=== PATIENT | female | born 1950 | race Caucasian/White ===

== ENCOUNTER → 2019-06-03 09:02 | Day surgery (SDC) | payer MEDICARE ==
[~2019-06-03 09:02] MED LIST: Buffered Lidocaine 1% SYRIN* 1 ML/SYRINGE INTRADERM ONE; Dexamethasone TAB* 4 MG ONE; Dexamethasone TAB* 4 MG PO ONE; Famotidine TAB* 20 MG ONE; Famotidine TAB* 20 MG PO ONE; Lactated Ringers 1000 ML Bag* 1,000 ML IV SCH; Lidocaine 1% w EPI 1:100,000* 30 ML VIAL ONE; Midazolam* 1 MG/ML 2 ML VIAL (2 MG) ONE; Ondansetron INJ* 2 MG/ML VIAL ONE; Scopolamine 1.5 mg* PATCH ONE; Scopolamine 1.5 mg* PATCH TRANSDERM ONE; ceFAZolin 2 GM in NS PREMIX(*) 2 GM/100 ML BAG IVPB ONE; fentaNYL* 50 MCG/ML 2 ML VIAL (100 MCG VIAL) ONE
[2019-06-03 13:36] VITALS: BP 139/73
--- NOTE | 2019-06-03 14:09 | OP ---
DATE OF OPERATION: 06/03/19 - [facility] DATE OF : 48 SURGEON: Raulito Estrada MD PRE-OP DIAGNOSIS: Left neck lymph nodes with lymphoma. POST-OP DIAGNOSIS: Left neck lymph nodes with lymphoma. OPERATIVE PROCEDURE: Excision of deep neck lymph node under local with IV sedation anesthesia. COMPLICATIONS: None. DISPOSITION: Good. SPECIMENS: Left neck lymph nodes, they were send fresh to Pathology, so they could run flow cytometry. DESCRIPTION OF PROCEDURE: The patient was taken to the operating room and placed in a supine position on the operating table. Her head was turned to the right and her neck was prepped with Betadine and she was draped in a sterile fashion. She was maintained under IV sedation. She was injected with mixture of 1% lidocaine, 0.5% Marcaine with epinephrine. A 15-blade was used to make an incision. Bipolar was used to release the subcutaneous fat and some lymph nodes were grasped and pulled and then dissected free with blunt dissection and the bipolar. These were sent to Pathology as previously described. The skin was closed with 3-0 deep dermal Vicryl, skin glue, Mastisol, and Steri-Strips. The patient tolerated the procedure well, no complications, transferred to the recovery room in stable condition. [id number]/[facility] #: [id number] RIKKI
== END | disposition home or self-care (01) ==
LOC: OR 09:02
PROVIDERS: ATTEND Otolaryngology
DX: C85.11 Unspecified B-cell lymphoma, lymph nodes of head, face, and neck (principal); Z87.891 Personal history of nicotine dependence; R00.2 Palpitations; M19.90 Unspecified osteoarthritis, unspecified site; F41.0 Panic disorder [episodic paroxysmal anxiety]
CPT/HCPCS: 88184; 88185; 88187; 88188; 88189; 88305; 88333; 88341; 88342; 88360; A9270-GY; J0690; J2250; J2405; J3010; J8540

== ENCOUNTER 2019-09-03 18:44 | Emergency (ER) | payer MEDICARE ==
[2019-09-03] MEDS ORDERED: Methocarbamol* 100 MG/ML 10 ML VIAL IV ONE (18:59)
[2019-09-03] MEDS ORDERED: Ketorolac INJ* 30 MG/ML 1 ML VIAL IV PUSH ONE (19:00)
--- NOTE | 2019-09-03 19:00 | ED ---
Back Pain - HPI Summary HPI Summary: 68 year old female presents with back pain today. 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 States she has not been doing much lately as she just started chemotherapy about a week ago. She is on the chemotherapy for non-Hodgkin lymphoma. She has some Tylenol and xanax prior to arrival. States she is having spasming in her lower back. Denies any history of back pain. no urinary symptoms. No loss of bowel or bladder. No saddle anesthesias. No pain into legs. No numbness tingling. No fevers. States she's been having constipation due to the chemotherapy. Is currently on senna and MiraLAX for such. denies any other medical conditions. - History of Current Complaint Chief Complaint: EDBackInjuryPain Stated Complaint: BACK PAIN PER PT Time Seen by Provider: 09/03/19 18:52 Pain Intensity: 10 - Allergies/Home Medications Allergies/Adverse Reactions: Allergies Allergy/AdvReac Type Severity Reaction Status Date / Time crab Allergy See Comment Verified 09/03/19 19:03 hydromorphone [From Dilaudid] Allergy SEVERE Verified 09/03/19 18:48 NAUSEA/VOMITING Perfume [Fragrance] Allergy Nausea Verified 09/03/19 18:48 shellfish derived Allergy Unknown Verified 09/03/19 19:03 Reaction Details shrimp Allergy ANAPHYLACTI Verified 09/03/19 18:48 C hydrocodone [From Vicodin] AdvReac SEVERE Verified 09/03/19 18:48 NAUSEA SEAFOOD Allergy Severe ANAPHYLACTI Uncoded 06/03/19 09:33 C PMH/Surg Hx/FS Hx/Imm Hx Endocrine/Hematology History: Denies: Hx Anticoagulant Therapy Cardiovascular History: Reports: Hx Rheumatic Fever - AT AGE 9, Other Cardiovascular Problems/Disorders - PALPITATIONS-LASTS FEW SECONGDS-IMPROVED SINCE STOPPING CAFFEINE Denies: Hx Hypertension, Hx Pacemaker/ICD Respiratory History: Denies: Other Respiratory Problems/Disorders GI History: Denies: Other GI Disorders History: Denies: Other Problems/Disorders Musculoskeletal History: Reports: Hx Arthritis - "EVERY JOINT", Hx Bursitis - INTERMITTENT TO THE RIGHT ARM Denies: Other Musculoskeletal History Sensory History: Reports: Hx Cataracts - LEFT EYE, Hx Contacts or Glasses - INSTRUCTS GIVEN Denies: Hx Hearing Aid Opthamlomology History: Reports: Hx Cataracts - LEFT EYE, Hx Contacts or Glasses - INSTRUCTS GIVEN Neurological History: Denies: Other Neuro Impairments/Disorders Psychiatric History: Reports: Hx Anxiety - HX OF PANIC ATTACKS - Cancer History Hx Chemotherapy: No Hx Radiation Therapy: No - Surgical History Surgery Procedure, Year, and Place: PARTIAL HYSTERECTOMY WITH BLADDER REPAIR FOR [id number]. LEFT ANKLE [id number] Hx Anesthesia Reactions: Yes - NAUSEA Infectious Disease History: No Infectious Disease History: Denies: Traveled Outside the [place] in Last 30 Days - Family History Known Family History: Positive: Non-Contributory - Social History Alcohol Use: None Alcohol Amount: 29 YEARS SOBER Substance Use Type: Reports: None Smoking Status (MU): Former Smoker Amount Used/How Often: 1 PPD X 15-20 YEARS Review of Systems Negative: Fever Negative: Chest Pain Negative: Shortness Of Breath Positive: Myalgia - back pain All Other Systems Reviewed And Are Negative: Yes Physical Exam Triage Information Reviewed: Yes Vital Signs On Initial Exam: Initial Vitals Temp Pulse Resp BP Pulse Ox 98.2 F 106 18 177/95 95 09/03/19 18:45 09/03/19 18:45 09/03/19 18:45 09/03/19 18:45 09/03/19 18:45 Vital Signs Reviewed: Yes Appearance: Positive: Well-Appearing Skin: Positive: Warm, Dry Head/Face: Positive: Normal Head/Face Inspection Eyes: Positive: Normal, Conjunctiva Clear ENT: Positive: Pharynx normal Respiratory/Lung Sounds: Positive: Clear to Auscultation, Breath Sounds Present Cardiovascular: Positive: Normal, RRR Abdomen Description: Positive: Nontender, Soft Bowel Sounds: Positive: Present Musculoskeletal: Positive: Limited @ - back with pain, Other - tenderness in lower back, neg SLR, sensation grossly intact. good pulses Neurological: Positive: Normal Psychiatric: Positive: Normal Procedures - Sedation Patient Received Moderate/Deep Sedation with Procedure: No Diagnostics - Vital Signs Vital Signs Temp Pulse Resp BP Pulse Ox 09/03/19 18:45 98.2 F 106 18 177/95 95 - Laboratory Lab Statement: Any lab studies that have been ordered have been reviewed, and results considered in the medical decision making process. Re-Evaluation - Re-Evaluation First Eval Re-Evaluation Time: 19:21 Change: Improved Comment: feeling better after toradol Second Eval Re-Evaluation Time: 19:26 Change: Improved Comment: feeling better, does not want CT scan Third Eval Re-Evaluation Time: 20:15 Change: Improved Comment: feeling better, wants to go home Back Pain Course/Dx - Course Course Of Treatment: 68 year old female presents with back pain today. 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 States she has not been doing much lately as she just started chemotherapy about a week ago. She is on the chemotherapy for non-Hodgkin lymphoma. She has some Tylenol prior to arrival. States she is having spasming in her lower back. Denies any history of back pain. no urinary symptoms. No loss of bowel or bladder. No saddle anesthesias. No pain into legs. No numbness tingling. No fevers. States she's been having constipation due to the chemotherapy. Is currently on senna and MiraLAX for such. On exam tenderness lower back. Neurovascularly intact. patient ambulated into room but appears uncomfortable on inital exam. gave toradol and some improvement. gave robaxin and feeling better. patient declined CT scan. will discharge with robaxin. urine likely contaminant. will have follow up with primary. patient understand and agrees with plan. - Diagnoses Differential Diagnosis/HQI/PQRI: Positive: Fracture, Herniated Disc, Strain Provider Diagnoses: Back pain Discharge ED - Sign-Out/Discharge Documenting (check all that apply): Patient Departure - Discharge Plan Condition: Good Disposition: HOME Prescriptions: Lidocaine PATCH 5%* [Lidoderm 5% Patch*] 1 patch TRANSDERM DAILY #5 patch Methocarbamol TAB* [Robaxin 500 MG TAB*] 500 mg PO TID PRN #21 tab PRN Reason: Pain - Moderate Patient Education Materials: Back Pain (ED) Referrals: Maribel Infante MD [Primary Care Provider] - Additional Instructions: Take muscle relaxers three times a day Apply lidocaine patches to area for up to 12 hours in one 24 hour period Use Tylenol for pain every 6 hours ice/heat area, move as much as possible Follow up with primary within 5 days Return to ED if develop any new or worsening symptoms - Billing Disposition and Condition Condition: GOOD Disposition: Home
[2019-09-03] MEDS ORDERED: Lidocaine PATCH 5%* 1 PATCH TRANSDERM ONE ×2 (19:17→20:13)
[2019-09-03] MEDS ORDERED: Methocarbamol TAB* 500 MG PO ONE (20:13)
[2019-09-03 20:23] LABS: Urine Appearance Clear; Urine Bacteria Absent (Absent); Urine Bilirubin Negative (Negative); Urine Blood Negative (Negative); Urine Color Yellow; Urine Glucose Negative (Negative); Urine Ketones Negative (Negative); Urine Nitrite Negative (Negative); Urine Protein Negative (Negative); Urine Red Blood Cell Absent (Absent); Urine Specific Gravity 1.019 (1.010-1.030); Urine Squamous Epithelial Cell Present (Absent); Urine Urobilinogen Negative (Negative); Urine White Blood Cell 1+(6-10/hpf) (Absent)
[2019-09-03 20:28] VITALS: BP 100/63
[2019-09-03] MEDS ORDERED: Lidocaine Patch REMOVE* 1 NOTE MISC SCH ×2 (21:00)
== END 2019-09-03 20:26 | disposition home or self-care (01) ==
LOC: ED 18:44
DX: M54.9 Dorsalgia, unspecified (principal); Z90.710 Acquired absence of both cervix and uterus; Z87.891 Personal history of nicotine dependence; Z88.5 Allergy status to narcotic agent
CPT/HCPCS: 81003; 81015; 87086; 96374; 96375; 99283; A9270-GY; J1885; J2800